=== PATIENT | female | born 1950 | race Hispanic/Latino ===

== ENCOUNTER 2018-07-27 13:47 | Outpatient (CLI) | payer MEDICARE ==
--- NOTE | 2018-08-02 13:22 | MMO ---
Bilateral MAMMO Bilat Screen [facility]. CLINICAL HISTORY: Patient is 68 years old and is seen for screening. The patient has the following family history of breast cancer: daughter, at age 39, malignant (generic), Bilateral masectomy. The patient has a history of cervical cancer 1982. The patient has a history of Radiation Therapy in 1982 - Pt. had cervical cancer.. VIEWS: The views performed were: bilateral craniocaudal with tomosynthesis and bilateral mediolateral oblique with tomosynthesis. FILMS COMPARED: The present examination has been compared to prior imaging studies performed at 10/21/2005, 11/08/2007, 08/30/2009, 02/09/2015 and 08/21/2016. MAMMOGRAM FINDINGS: There are scattered fibroglandular densities. Finding 1: There are vascular calcifications seen in both breasts. Finding 2: There are benign appearing calcifications seen in both breasts. There are no suspicious masses, calcifications or areas of architectural distortion. IMPRESSION: THERE IS NO MAMMOGRAPHIC EVIDENCE OF MALIGNANCY. A ROUTINE FOLLOW-UP MAMMOGRAM IN 1 YEAR IS RECOMMENDED. THE RESULTS OF THIS EXAM WERE SENT TO THE PATIENT. ACR BI-RADS Category 2 - Benign finding MAMMOGRAPHY NOTE: 1. A negative mammogram report should not delay a biopsy if a dominant of clinically suspicious mass is present. 2. Approximately 10% to 15% of breast cancers are not detected by mammography. 3. Adenosis and dense breasts may obscure an underlying neoplasm.
== END 2018-07-27 13:48 | disposition home or self-care (01) ==
LOC: BICMAMMO 13:47
PROVIDERS: ATTEND Internal Medicine
DX: Z12.31 Encounter for screening mammogram for malignant neoplasm of breast (principal); Z80.3 Family history of malignant neoplasm of breast; Z85.41 Personal history of malignant neoplasm of cervix uteri
CPT/HCPCS: 77063; 77067

== ENCOUNTER 2019-09-25 12:00 | Emergency (ER) | payer MEDICARE ==
--- NOTE | 2019-09-25 12:38 | CT ---
CT HEAD WITHOUT IV CONTRAST COMPARISON: None HISTORY: Injury after a fall. Patient complains of headache. 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 TECHNIQUE: Axial CT imaging at 5 mm intervals from vertex through skull base without contrast FINDINGS: There is an area of diminished attenuation seen within the lower aspect of the anterior right frontal lobe likely attributable to remote infarction. There is no evidence of an acute infarction, hemorrhage, mass effect, or midline shift. Mild cerebral volume loss is present. The ventricular syst em is normal in size, shape, and position for the degree of sulcal atrophy. Air-fluid level is present in the right sphenoid sinus. Remainder of the visualized paranasal sinuses and mastoid air cells are clear. Osseous structures appear intact. IMPRESSION: 1. No acute intracranial abnormality demonstrated. 2. Small air-fluid level right maxillary antrum.
== END 2019-09-25 14:36 | disposition home or self-care (01) ==
LOC: ERS 12:00
DX: S00.03XA Contusion of scalp, initial encounter (principal); S80.212A Abrasion, left knee, initial encounter; I10 Essential (primary) hypertension; E78.5 Hyperlipidemia, unspecified; E03.9 Hypothyroidism, unspecified; Z86.73 Personal history of transient ischemic attack (TIA), and cerebral infarction without residual deficits; Z79.899 Other long term (current) drug therapy; W01.0XXA Fall on same level from slipping, tripping and stumbling without subsequent striking against object, initial encounter
CPT/HCPCS: 70450

== ENCOUNTER 2021-02-14 16:17 | Outpatient (CLI) | payer MEDICARE ==
[2021-02-14 17:10] LABS: #Basophils 0.1 10x3/uL (0.0-0.2); #Eosinphils 0.2 10x3/uL (0.0-0.5); #Monocytes 0.6 10x3/uL (0.0-1.1); #Neutrophils 9.9 10x3/uL (1.5-8.4); %Basophils 0.6 % (0.0-2.0); %Eosinophils 1.3 % (0.0-6.0); %Lymphocytes 14.3 % (18.0-47.0); %Neutrophils 78.3 % (40.0-75.0); Hemoglobin 12.9 g/dL (12.0-15.5); Mean Corpuscular HGB CONC 31.5 g/dL (32.0-36.0); Mean Corpuscular Hemoglobin 29.3 pg (27.0-33.0); Mean Corpuscular Volume 92.7 fl (81.6-98.3); Mean Platelet Volume 9.3 fl (7.4-10.4); Platelet Count 398 10x3/uL (150-450); RBC Distribution Width 13.5 % (11.5-14.5); Red Blood Cell (RBC) Count 4.41 10x6/uL (3.90-5.03); White Blood Cell (WBC) Count 12.6 10x3/uL (3.5-10.5)
[2021-02-14 17:34] LABS: Anion Gap 16 mmol/L (10-20); BUN (Urea Nitrogen) 12 mg/dL (9.8-20.1); Calc. Creatinine Clearance 0 mL/min (70-130); Calcium 9.9 mg/dL (7.8-10.44); Carbon Dioxide 23 mmol/L (23-31); Chloride 106 mmol/L (98-107); Glucose 105 mg/dL (83-110); Potassium 4.6 mmol/L (3.5-5.1); Sodium 140 mmol/L (136-145)
[2021-02-15 08:32] LABS: SARS-CoV-2 PCR by NAA Not Detected (NotDetected)
== END 2021-02-14 16:18 | disposition home or self-care (01) ==
LOC: LABBT 16:17
PROVIDERS: ATTEND Surgery
DX: Z01.818 Encounter for other preprocedural examination (principal); C52 Malignant neoplasm of vagina; Z20.822 Contact with and (suspected) exposure to COVID-19
CPT/HCPCS: 80048; 85025; U0003; U0005; 93005; 93010

== ENCOUNTER 2021-02-19 10:32 | Day surgery (SDC) | payer MEDICARE ==
[2021-02-18 13:59] VITALS: BMI 24.7
[2021-02-19] MEDS ORDERED: Acetaminophen 500 MG TAB ONE (11:51)
[2021-02-19] MEDS ORDERED: Ketorolac Tromethamine 30 MG/ML VIAL ONE (11:51)
[2021-02-19] MEDS ORDERED: Bupivacaine 0.25% HCL 30 ML VIAL ONE (12:01)
[2021-02-19] MEDS ORDERED: Lidocaine 1% w/Epinephrine 1:100K 20 ML VIAL ONE (12:01)
[2021-02-19] MEDS ORDERED: Ondansetron PF 4 MG/2 ML Vial ONE (12:10)
[2021-02-19] MEDS ORDERED: Lidocaine 1% PF 5 ML VIAL ONE (12:10)
[2021-02-19] MEDS ORDERED: PHENYLEPHRINE-NS 100 MCG/ML 10 ML SYRINGE ONE (12:10)
[2021-02-19] MEDS ORDERED: PROPOFOL 200 MG/20 ML VIAL ONE (12:10)
[2021-02-19] MEDS ORDERED: Fentanyl 100 MCG/2 ML VIAL ONE (12:15)
[2021-02-19] MEDS ORDERED: Propofol 500 MG/50 ML VIAL ONE (12:21)
== END 2021-02-19 15:30 | disposition home or self-care (01) ==
LOC: SDC 10:32
PROVIDERS: ATTEND Surgery
PROC: 0JH60WZ Insertion of Totally Implantable Vascular Access Device into Chest Subcutaneous Tissue and Fascia, Open Approach (ICD-10-PCS; principal; 2021-02-19)
PROC: 02HV33Z Insertion of Infusion Device into Superior Vena Cava, Percutaneous Approach (ICD-10-PCS; 2021-02-19)
DX: C52 Malignant neoplasm of vagina (principal); M85.9 Disorder of bone density and structure, unspecified; E03.9 Hypothyroidism, unspecified; Z87.891 Personal history of nicotine dependence; Z79.82 Long term (current) use of aspirin; Z79.83 Long term (current) use of bisphosphonates; Z79.899 Other long term (current) drug therapy; Z98.890 Other specified postprocedural states
CPT/HCPCS: 36561; 71045; C1788; J1642; J1885; J2405; J2704; J3010; S0020

== ENCOUNTER 2021-12-04 10:06 | Outpatient (CLI) | payer MEDICARE | END 2021-12-04 10:07 | disposition home or self-care (01) | LOC: BICMAMMO 10:06 | PROVIDERS: ATTEND Internal Medicine | DX: Z12.31 Encounter for screening mammogram for malignant neoplasm of breast (principal); Z13.820 Encounter for screening for osteoporosis; M81.0 Age-related osteoporosis without current pathological fracture; M85.851 Other specified disorders of bone density and structure, right thigh; Z90.13 Acquired absence of bilateral breasts and nipples; Z85.41 Personal history of malignant neoplasm of cervix uteri; Z80.3 Family history of malignant neoplasm of breast | CPT/HCPCS: 77063; 77067; 77080 ==

== ENCOUNTER 2022-09-02 14:32 | Outpatient (CLI) | payer MEDICARE | END 2022-09-02 14:33 | disposition home or self-care (01) | LOC: RAD 14:32 | PROVIDERS: ATTEND Internal Medicine | DX: M25.551 Pain in right hip (principal); M16.11 Unilateral primary osteoarthritis, right hip | CPT/HCPCS: 80053 ==

== ENCOUNTER 2023-03-11 10:07 | Outpatient (CLI) | payer MEDICARE | END 2023-03-11 10:08 | disposition home or self-care (01) | LOC: BICMAMMO 10:07 | PROVIDERS: ATTEND Internal Medicine | DX: Z12.31 Encounter for screening mammogram for malignant neoplasm of breast (principal); Z80.3 Family history of malignant neoplasm of breast; Z85.41 Personal history of malignant neoplasm of cervix uteri | CPT/HCPCS: 77063; 77067 ==

== ENCOUNTER 2023-04-21 11:51 | Outpatient (CLI) | payer MEDICARE ==
[2023-04-21 15:21] LABS: #Basophils 0.1 10x3/uL (0.0-0.2); #Eosinphils 0.1 10x3/uL (0.0-0.5); #Monocytes 0.3 10x3/uL (0.0-1.1); #Neutrophils 5.8 10x3/uL (1.5-8.4); %Basophils 0.7 % (0.0-2.0); %Eosinophils 0.7 % (0.0-6.0); %Lymphocytes 17.1 % (18.0-47.0); %Monocytes 4.4 % (0.0-10.0); %Neutrophils 76.7 % (40.0-75.0); Hematocrit 39.1 % (34.9-44.5); Hemoglobin 12.7 g/dL (12.0-15.5); Mean Corpuscular HGB CONC 32.5 g/dL (32.0-36.0); Mean Corpuscular Hemoglobin 32.7 pg (27.0-33.0); Mean Corpuscular Volume 100.8 fl (81.6-98.3); Mean Platelet Volume 9.9 fl (7.4-10.4); Platelet Count 271 10x3/uL (150-450); RBC Distribution Width 13.2 % (11.5-14.5); Red Blood Cell (RBC) Count 3.88 10x6/uL (3.90-5.03); White Blood Cell (WBC) Count 7.5 10x3/uL (3.5-10.5)
[2023-04-21 15:25] LABS: Anion Gap 16 mmol/L (10-20); BUN (Urea Nitrogen) 14 mg/dL (9.8-20.1); Calc. Creatinine Clearance 0 mL/min (70-130); Calcium 9.2 mg/dL (7.8-10.44); Carbon Dioxide 23 mmol/L (23-31); Chloride 107 mmol/L (98-107); Estimated GFR 92; Glucose 84 mg/dL (83-110); Potassium 4.7 mmol/L (3.5-5.1); Sodium 141 mmol/L (136-145)
[2023-04-21 15:28] LABS: Prothrombin Time 10.8 sec (9.5-12.1)
== END 2023-04-21 11:52 | disposition home or self-care (01) ==
LOC: LABBT 11:51
PROVIDERS: ATTEND Orthopaedic Surgery
DX: Z01.818 Encounter for other preprocedural examination (principal); M16.11 Unilateral primary osteoarthritis, right hip
CPT/HCPCS: 80048; 85025; 85610; 87081; 93005; 93010

== ENCOUNTER 2023-04-23 05:43 | Inpatient (IN) | payer MEDICARE ==
[2023-04-21 13:01] VITALS: BMI 22.6
[2023-04-23] MEDS ORDERED: Tranexamic Acid 1,000 MG/10 ML VIAL ONE (05:56)
[2023-04-23] MEDS ORDERED: Sodium Chloride 0.9% 100 ML ONE ×2 (05:56→06:58)
[2023-04-23] MEDS ORDERED: Vancomycin 1 GM/200 ML (FROZEN) BAG ONE (05:57)
[2023-04-23] MEDS ORDERED: fentaNYL PF 100 MCG/2 ML SYRINGE ONE (06:16)
[2023-04-23] MEDS ORDERED: Midazolam HCl 2 mg/2 ml Vial ONE (06:16)
[2023-04-23] MEDS ORDERED: Lidocaine 1% PF 5 ML VIAL ONE ×2 (06:17→06:30)
[2023-04-23] MEDS ORDERED: PROPOFOL 20 ML ONE ×2 (06:17→07:14)
[2023-04-23] MEDS ORDERED: Bupivacaine PF 0.5% 30 ML VIAL ONE (06:30)
[2023-04-23] MEDS ORDERED: PHENYLEPHRINE-NS 100 MCG/ML 10 ML SYRINGE ONE ×2 (06:30→07:31)
[2023-04-23] MEDS ORDERED: CEFAZOLIN 2 GM VIAL ONE (06:57)
[2023-04-23] MEDS ORDERED: Promethazine HCl 25 MG/ML VIAL IM PRN (06:58)
[2023-04-23] MEDS ORDERED: diphenhydrAMINE 25 MG CAP PO PRN (06:58)
[2023-04-23] MEDS ORDERED: traMADol HCl 50 MG TAB PO PRN ×2 (06:58)
[2023-04-23] MEDS ORDERED: Acetaminophen 325 MG TAB PO PRN (06:58)
[2023-04-23] MEDS ORDERED: fentaNYL 50 mcg/mL 1 mL Vial SLOW IVP PRN (06:58)
[2023-04-23] MEDS ORDERED: Zolpidem Tartrate 5 MG TAB PO PRN (06:58)
[2023-04-23] MEDS ORDERED: Ropivacaine 0.5% HCl/PF (150 MG/30 ML VIAL) ONE (08:16)
[2023-04-23] MEDS: Aspirin 81 mg Enteric Coated Tablet PO SCH ×2 (09:00→21:55)
[2023-04-23] MEDS: Senokot S 8.6-50 MG TAB PO SCH ×2 (09:00→21:56)
[2023-04-23] MEDS ORDERED: PACU-Morphine 4MG/ML VIAL SLOW IVP PRN (09:00)
[2023-04-23] MEDS ORDERED: Ketorolac Tromethamine 30 MG/ML VIAL IVP PRN (09:00)
[2023-04-23] MEDS: Multivitamin W/ Minerals 1 TAB PO SCH (09:00)
[2023-04-23] MEDS: Ferrous Gluconate 324 MG TAB PO SCH ×2 (09:00→21:57)
[2023-04-23] MEDS ORDERED: Ondansetron HCl/PF 4 MG/2 ML Vial IVP PRN (09:00)
[2023-04-23] MEDS: HYDROcodone/Acetaminophen 10/325 mg Tablet PO PRN (13:36)
[2023-04-23] MEDS: Ketorolac Tromethamine 30 MG/ML VIAL IVP SCH ×2 (13:40→21:57)
[2023-04-23] MEDS: CEFAZOLIN 2 GM in Sodium Chloride 0.9% 100 ML IVPB SCH ×2 (13:53→21:55)
[2023-04-23] MEDS: Sodium Chloride 0.9% 1,000 ML IV SCH ×2 (18:35→22:05)
[2023-04-23] MEDS: Ondansetron PF 4 MG/2 ML Vial IVP PRN (23:16)
[2023-04-24] MEDS: Ketorolac Tromethamine 30 MG/ML VIAL IVP SCH ×3 (06:29→21:49)
[2023-04-24 06:51] LABS: Hematocrit 33.4 % (36.0-47.0); Hemoglobin 10.6 g/dL (12.0-16.0); Mean Corpuscular HGB CONC 31.7 g/dL (32.0-36.0); Platelet Count 185 10x3/uL (130-400); RBC Distribution Width 12.7 % (11.5-14.5); Red Blood Cell (RBC) Count 3.21 mill/uL (4.20-5.40); White Blood Cell (WBC) Count 7.1 10x3/uL (4.8-10.8)
[2023-04-24] MEDS: Ferrous Gluconate 324 MG TAB PO SCH ×2 (09:54→19:56)
[2023-04-24] MEDS: Aspirin 81 mg Enteric Coated Tablet PO SCH ×2 (09:54→19:57)
[2023-04-24] MEDS: Senokot S 8.6-50 MG TAB PO SCH ×2 (09:54→19:57)
[2023-04-24] MEDS: Multivitamin W/ Minerals 1 TAB PO SCH (09:54)
[2023-04-24] MEDS: Sodium Chloride 0.9% 1,000 ML IV SCH ×2 (13:27→22:38)
[2023-04-25] MEDS: Ketorolac Tromethamine 30 MG/ML VIAL IVP SCH ×2 (05:14→13:49)
[2023-04-25] MEDS: Multivitamin W/ Minerals 1 TAB PO SCH (09:50)
[2023-04-25] MEDS: Aspirin 81 mg Enteric Coated Tablet PO SCH ×2 (09:50→21:10)
[2023-04-25] MEDS: Sodium Chloride 0.9% 1,000 ML IV SCH ×2 (09:50→19:23)
[2023-04-25] MEDS: Ferrous Gluconate 324 MG TAB PO SCH ×2 (09:50→21:10)
[2023-04-25] MEDS: Senokot S 8.6-50 MG TAB PO SCH ×2 (09:51→21:10)
[2023-04-26] MEDS: HYDROcodone/Acetaminophen 10/325 mg Tablet PO PRN ×2 (00:45→19:31)
[2023-04-26] MEDS: Sodium Chloride 0.9% 1,000 ML IV SCH ×2 (04:16→16:15)
[2023-04-26] MEDS: Multivitamin W/ Minerals 1 TAB PO SCH (09:07)
[2023-04-26] MEDS: Aspirin 81 mg Enteric Coated Tablet PO SCH ×2 (09:07→19:27)
[2023-04-26] MEDS: Ferrous Gluconate 324 MG TAB PO SCH ×2 (09:08→19:27)
[2023-04-26] MEDS: Senokot S 8.6-50 MG TAB PO SCH ×2 (09:08→19:28)
[2023-04-26] MEDS ORDERED: Atorvastatin Calcium 10 MG TAB PO SCH (23:00)
[2023-04-27] MEDS: Sodium Chloride 0.9% 1,000 ML IV SCH ×2 (04:42→12:08)
[2023-04-27] MEDS: Ondansetron PF 4 MG/2 ML Vial IVP PRN (05:29)
[2023-04-27] MEDS: HYDROcodone/Acetaminophen 10/325 mg Tablet PO PRN ×2 (05:30→09:33)
[2023-04-27] MEDS ORDERED: Levothyroxine Sodium 100 MCG TAB PO SCH (06:00)
[2023-04-27] MEDS ORDERED: Lisinopril 10 MG TAB PO SCH (09:00)
[2023-04-27] MEDS: Aspirin 81 mg Enteric Coated Tablet PO SCH (09:33)
[2023-04-27] MEDS: Senokot S 8.6-50 MG TAB PO SCH (09:33)
[2023-04-27] MEDS: Multivitamin W/ Minerals 1 TAB PO SCH (09:33)
[2023-04-27 11:39] VITALS: TEMP 98.1
[2023-04-27] MEDS: Ferrous Gluconate 324 MG TAB PO SCH (12:06)
[2023-04-27] MEDS ORDERED: Acetaminophen/Codeine 30-300mg Tablet PO PRN ×2 (13:01)
[2023-04-27 15:23] VITALS: BP 118/62
[2023-04-27] MEDS ORDERED: Atorvastatin Calcium 10 MG TAB PO SCH (21:00)
== END 2023-04-27 15:30 | disposition home or self-care (01) | DRG 470 ==
LOC: SDC 05:43 → SURG A 10:16 → SDC 11:37 → OBSVTOIN 04-24 09:10
PROVIDERS: ADMIT Orthopaedic Surgery; ATTEND Orthopaedic Surgery
PROC: 0SR90J9 Replacement of Right Hip Joint with Synthetic Substitute, Cemented, Open Approach (ICD-10-PCS; principal; 2023-04-23)
DX: M16.11 Unilateral primary osteoarthritis, right hip (principal); D62 Acute posthemorrhagic anemia; I10 Essential (primary) hypertension; E78.5 Hyperlipidemia, unspecified; Z86.73 Personal history of transient ischemic attack (TIA), and cerebral infarction without residual deficits; Z98.890 Other specified postprocedural states; Z79.82 Long term (current) use of aspirin; Z79.899 Other long term (current) drug therapy; Z87.891 Personal history of nicotine dependence; R33.9 Retention of urine, unspecified; E03.9 Hypothyroidism, unspecified
CPT/HCPCS: 36415; 85027; 96365; 96375; 96376; C1713; C1776; G0378; J1885; J2250; J2405; J2704; J2795; J3370-JW; J3490; J7050; S0020